=== PATIENT | male | born 1985 | race Caucasian/White ===

== ENCOUNTER 2023-11-20 08:18 | Emergency (ER) | payer MEDICAID ==
[~2023-11-20] VITALS: Ht 180.3 cm; Wt 90.4 kg
[2023-11-20 08:27] VITALS: BP 133/80; PULSE 107; RESP 16; TEMP 98.6; O2SAT 99
== END 2023-11-20 10:02 | disposition home or self-care (01) ==
LOC: ER 08:19
DX: S42.032A Displaced fracture of lateral end of left clavicle, initial encounter for closed fracture (principal); X58.XXXA Exposure to other specified factors, initial encounter; Y93.89 Activity, other specified; Y92.89 Other specified places as the place of occurrence of the external cause; Y99.8 Other external cause status
CPT/HCPCS: 73000; 99283; A4565

== ENCOUNTER 2023-12-09 08:32 | Emergency (ER) | payer MEDICAID ==
[~2023-12-09] VITALS: Ht 180.3 cm; Wt 90.5 kg
[2023-12-09 08:38] VITALS: BP 117/84; PULSE 97; RESP 18; TEMP 97.8; O2SAT 99
[2023-12-09] MEDS ORDERED: NAPR-56 PO (09:16)
[2023-12-09] MEDS ORDERED: DOXY-224 PO (09:16)
== END 2023-12-09 09:21 | disposition home or self-care (01) ==
LOC: ER 08:33
DX: K04.7 Periapical abscess without sinus (principal)
CPT/HCPCS: 99283